=== PATIENT | female | born 1990 | race Caucasian/White ===

== ENCOUNTER 2018-02-04 05:44 | Emergency (ER) | payer SELFPAY ==
[2018-02-04] MEDS ORDERED: Naproxen 500 MG Tab PO STA (06:05)
--- NOTE | 2018-02-04 06:12 | EDM.PDOC ---
ED HPI GENERAL MEDICAL PROBLEM - General Chief Complaint: ENT Problem Stated Complaint: RIGHT SIDE TOOTH HEAD AND EAR PAIN Time Seen by Provider: 02/04/18 05:54 Source of Information: Reports: Patient, RN Notes Reviewed History Limitations: Reports: No Limitations - History of Present Illness INITIAL COMMENTS - FREE TEXT/NARRATIVE: The patient states that she developed right upper and lower toothaches tonight, although acknowledges that she has had similar problems on off for about one year. She states that she saw dentist in October, and was told that her wisdom teeth are fractured. She was referred to an oral surgeon for extraction, however , she states that she does not have insurance to cover the cost at this time. No recent fever. The patient is not sure if she has had oral drainage or not. The patient does not have a PCP. Right Tooth/Teeth Pain Score (Numeric/FACES): 7 - Related Data Allergies Allergy/AdvReac Type Severity Reaction Status Date / Time amoxicillin Allergy Cannot Verified 02/04/18 05:55 Remember Penicillins Allergy Cannot Verified 02/04/18 05:55 Remember Home Meds: Home Meds Naproxen 500 mg PO Q12H PRN #20 tablet 02/04/18 [Rx] Past Medical History - Past Surgical History HEENT Surgical History: Reports: Myringotomy w Tube(s) (bilateral) Social & Family History - Tobacco Use Smoking Status *Q: Never Smoker - Alcohol Use Alcohol Use History: Yes Alcohol Use Frequency: Socially - Recreational Drug Use Recreational Drug Use: No - Living Situation & Occupation Living situation: Reports: , with Family (2 kids) Occupation: Employed ([employer] ED ROS ENT - Review of Systems Review Of Systems: ROS reveals no pertinent complaints other than HPI. ED EXAM, ENT - Physical Exam Exam: See Below Exam Limited By: No Limitations General Appearance: Alert, WD/WN, No Apparent Distress Eye Exam: Bilateral Eye: EOMI, Normal Inspection Ears: Normal External Exam, Normal Canal, Hearing Grossly Normal, Normal TMs Nose: Normal Inspection, Normal Mucousa, No Blood Mouth/Throat: Normal Inspection, Normal Gums, Normal Lips, Normal Oropharynx, Other (Tooth #1 with fracture/erosion. Tooth #16 with fracture/erosion. No gingival swelling or other visible abnormality.) Course - Vital Signs Last Recorded V/S: Last Vital Signs Temp 36.5 C 09/23/18 05:51 Pulse 101 H 02/04/18 05:51 Resp 16 02/04/18 05:51 BP 114/83 02/04/18 05:51 Pulse Ox 97 02/04/18 05:51 - Orders/Labs/Meds Orders: Active Orders 24 hr Category Date Time Status Naproxen [Naprosyn] Med 02/04/18 06:05 Stat 500 mg PO ONETIME STA Medication Orders Naproxen (Naprosyn) 500 mg PO ONETIME STA Stop: 02/04/18 06:06 Meds: Medications Generic Name Dose Route Start Last Admin Trade Name Garfield PRN Reason Stop Dose Admin Naproxen 500 mg 02/04/18 06:05 Naprosyn PO 02/04/18 06:06 ONETIME STA - Re-Assessments/Exams Free Text/Narrative Re-Assessment/Exam: 02/04/18 06:06 The patient is complaining of right upper and lower toothaches, however, on examination, I see only fractures with erosions of teeth #1 and 16, with no gingival inflammation or suggestion of an infection. I do not see an indication for antibiotics. I will start the patient on oral naproxen, and prescribe additional. Ultimately, the patient will need to get in to see an oral surgeon to have her wisdom teeth extracted. Departure - Departure Time of Disposition: 06:07 Disposition: Home, Self-Care 01 Condition: Good Clinical Impression: Dentalgia - Discharge Information *PRESCRIPTION DRUG MONITORING PROGRAM REVIEWED*: Not Applicable *COPY OF PRESCRIPTION DRUG MONITORING REPORT IN PATIENT WILNER: Not Applicable Referrals: PCP,None [Primary Care Provider] - Additional Instructions: You were seen in the emergency room for upper and lower right tooth aches. On examination, you have fractures/erosions of teeth #1 and 16, but no gum swelling or other visible abnormality to suggest an infection. You have been started on the anti-inflammatory pain medicine naproxen. A prescription for naproxen has been sent to the [facility], [address], located just south and across the [address] from [facility]. They will be open between noon and 4:00 PM today. Take one tablet of naproxen, with food, every 12 hours, as prescribed. Follow-up with an oral surgeon at the next available appointment. If any other problems, please do not hesitate to return to the ER. - My Orders Last 24 Hours: My Active Orders 02/04/18 06:05 Naproxen [Naprosyn] 500 mg PO ONETIME STA - Assessment/Plan Last 24 Hours: My Active Orders 02/04/18 06:05 Naproxen [Naprosyn] 500 mg PO ONETIME STA
== END 2018-02-04 06:23 | disposition home or self-care (01) ==
LOC: JD.ED 05:44
DX: K03.2 Erosion of teeth (principal); K03.81 Cracked tooth; Z88.1 Allergy status to other antibiotic agents; Z88.0 Allergy status to penicillin
CPT/HCPCS: 99282; A9270